=== PATIENT | male | born 1985 | race American Indian/Alaskan Native ===

== ENCOUNTER 2020-01-06 20:15 | Emergency (ER) | payer OTHER ==
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
[2020-01-07 07:31] VITALS: BP 122/56
== END 2020-01-06 21:47 | disposition home or self-care (01) ==
LOC: ED 20:15
DX: S70.312A Abrasion, left thigh, initial encounter (principal); X58.XXXA Exposure to other specified factors, initial encounter; Y93.89 Activity, other specified; Y92.89 Other specified places as the place of occurrence of the external cause; Y99.8 Other external cause status

== ENCOUNTER 2020-07-07 10:31 | Emergency (ER) | payer OTHER | END 2020-07-07 12:27 | disposition left against medical advice (07) | LOC: ED 10:31 | DX: R05 Cough (principal); R06.02 Shortness of breath; Z53.21 Procedure and treatment not carried out due to patient leaving prior to being seen by health care provider ==